=== PATIENT | female | born 1990 | race African-American/Black ===

== ENCOUNTER 2021-06-19 18:19 | Emergency (ER) | payer BC ==
[2021-06-19 18:38] VITALS: TEMP 99; BMI 25.8
[2021-06-19] MEDS ORDERED: PANTOPRAZOLE SODIUM 40 MG VIAL IVPB ONE (19:46)
[2021-06-19] MEDS ORDERED: PANTOPRAZOLE SODIUM 40 MG VIAL ONE (19:50)
[2021-06-19] MEDS ORDERED: ACETAMINOPHEN INJECTION 100 ML IVPB ONE (19:50)
[2021-06-19 20:18] LABS: ALBUMIN 4.4 g/dl (3.4-5.0); BILIRUBIN,TOTAL 0.3 mg/dl (0.2-1); CALCIUM 9.1 mg/dl (8.5-10); CREATININE 0.7 mg/dl (0.55-1.3); TOT PROT 7.7 g/dl (6.4-8.2)
[2021-06-19 20:19] LABS: HCG,QUALITATIVE URINE Negative
[2021-06-19 20:28] LABS: EPITHELIAL CELLS FEW /hpf
[2021-06-19 21:04] LABS: BASO % 0.6 % (0-2.0); EOS % 6.1 % (0-4.5); HEMATOCRIT 38.4 % (32.4-45.2); HEMOGLOBIN 12.7 GM/dL (10.7-15.3); LYMPH % 19.2 % (8-40); MCH 29.2 pg (25.7-33.7); MEAN CELL VOLUME 88.5 fl (80-96); MEAN PLT VOLUME 9.8 fl (7.5-11.1); MONO % 11.6 % (3.8-10.2); NEUT % 62.5 % (42.8-82.8); PLATELET COUNT 261 10^3/uL (134-434); RBC 4.34 M/mm3 (3.60-5.2); RDW 12.9 % (11.6-15.6); WHITE BLOOD COUNT 5.5 K/mm3 (4.0-10.0)
[2021-06-20 00:25] VITALS: BP 122/68; PULSE 72
== END 2021-06-19 22:45 | disposition home or self-care (01) ==
LOC: FER 18:19
PROC: 3E033GC Introduction of Other Therapeutic Substance into Peripheral Vein, Percutaneous Approach (ICD-10-PCS; principal; 2021-06-19)
DX: R10.13 Epigastric pain (principal)
CPT/HCPCS: 36415; 80053; 81003; 81015; 84703; 85025; 99284-25